=== PATIENT | female | born 1990 | race African-American/Black ===

== ENCOUNTER 2016-12-16 13:04 | Emergency (ER) | payer OTHER ==
[~2016-12-16] VITALS: Ht 160 cm; Wt 133.8 kg
[~2016-12-16 13:04] MED LIST: AUGMENTIN875 MG PO; MOTRIN800 MG PO; PERCOCET 5-3251 EACH PO
[2016-12-16 14:24] LABS: ADD MIUA? YES; BILIRUBIN NEGATIVE; BLOOD MODERATE; COLOR YELLOW ((YELLOW)); GLUCOSE (STRIP) NEGATIVE; KETONES NEGATIVE; LEUKOCYTES TRACE; NITRITE NEGATIVE; PROTEIN (STRIP) 100; SPECIFIC GRAVITY 1.024 (1.000-1.030); UROBILINOGEN 0.2 MG/DL (0.2-1.0)
[2016-12-16 14:27] LABS: HEMATOCRIT 37.6 % (36.0-46.0); MCH 26.5 PG (29.0-34.0); MCV 80.3 FL (83-99); MEAN PLAT.VOLUME 9.3 uM^3 (9.5-12.4); PLATELET COUNT 433 K/uL (156-360); RBC DIS.WIDTH-CV 14.7 % (11.8-14.6); RBC DIS.WIDTH-SD 42.3 % (39-53); RED BLOOD COUNT 4.68 M/uL (3.80-5.20); WHITE BLOOD COUNT 13.7 K/uL (4.1-10.2)
[2016-12-16 14:40] LABS: CHLORIDE 106 mEq/L (99-109); POTASSIUM 3.6 mEq/L (3.7-5.4); SODIUM 144 mEq/L (136-147)
[2016-12-16 14:42] LABS: GLUCOSE 92 mg/dL (70-99)
[2016-12-16 14:43] LABS: ANION GAP 11 MEQ/L (2-14)
[2016-12-16 14:44] LABS: TOTAL BILIRUBIN 0.3 mg/dL (0.0-1.0)
[2016-12-16 14:46] LABS: ALKALINE PHOSPHATASE 131 IU/L (3-129); GFR ESTIMATE (CALCULATED) > 59 mL/min/
[2016-12-16 14:47] LABS: UREA NITROGEN (BUN) 6 mg/dL (9-23)
[2016-12-16 14:52] LABS: BACTERIA 1+ /HPF; EPITHELIAL CELLS 1+ /HPF; MUCUS 1+ /LPF; RED BLOOD CELLS 30-40 /HPF (0-5); UCUL ADDED? NO; WHITE BLOOD CELLS 0-5 /HPF (0-5)
[2016-12-16 14:57] LABS: QUANTITATIVE HCG < 4.0 MIU/ML
[2016-12-16] MEDS ORDERED: NAPROXEN500 MG PO (16:54)
[2016-12-16 17:07] VITALS: BP 107/81
== END 2016-12-16 17:08 | disposition home or self-care (01) ==
LOC: EME 13:04
DX: K43.9 Ventral hernia without obstruction or gangrene (principal); F11.10 Opioid abuse, uncomplicated
CPT/HCPCS: 74177; 80053; 81003; 84702; 85027; 99281; 99284; J1885; J3010; J7120

== ENCOUNTER 2017-04-02 11:33 | Emergency (ER) | payer OTHER ==
[~2017-04-02] VITALS: Ht 160 cm; Wt 131.6 kg
[~2017-04-02 11:33] MED LIST changes: +NAPROXEN500 MG PO
[2017-04-02 16:05] VITALS: BP 145/94
== END 2017-04-02 16:31 | disposition home or self-care (01) ==
LOC: EME 11:33
DX: O26.891 Other specified pregnancy related conditions, first trimester (principal); K59.01 Slow transit constipation; O99.322 Drug use complicating pregnancy, second trimester; F11.90 Opioid use, unspecified, uncomplicated; K58.9 Irritable bowel syndrome, unspecified; Z3A.15 15 weeks gestation of pregnancy; Z88.6 Allergy status to analgesic agent; Z87.891 Personal history of nicotine dependence
CPT/HCPCS: 99281; 99284

== ENCOUNTER → 2017-07-03 | Outpatient (CLI) | payer OTHER ==
[~2017-07-03] VITALS: Ht 160 cm; Wt 130.5 kg
[~2017-07-03] MED LIST changes: +PRENATAL TABLE1 EAC3 PO
== END | disposition home or self-care (01) ==
LOC: IVINF 06-28 15:00
DX: Z31.82 Encounter for Rh incompatibility status (principal); Z3A.28 28 weeks gestation of pregnancy; Z67.11 Type A blood, Rh negative
CPT/HCPCS: J2790

== ENCOUNTER 2017-09-13 10:38 | Inpatient (IN) | payer OTHER ==
[~2017-09-13] VITALS: Ht 160 cm; Wt 132.9 kg
[~2017-09-13 10:38] MED LIST changes: +ROXICODONE5 MG PO; +TUMS500 MG PO; +TYLENOL EXTRA500 MG PO
[2017-09-13 11:11] VITALS: BP 117/72
[2017-09-13 12:44] VITALS: BP 110/59
[2017-09-13 14:44] VITALS: BP 115/65
[2017-09-13] MEDS ORDERED: ENDOCET 5-3251 EACH PO (16:54)
[2017-09-13] MEDS ORDERED: IBUPROFEN800 MG PO (16:54)
[2017-09-13 18:21] VITALS: BP 122/58
[2017-09-13 19:14] VITALS: BP 114/61
[2017-09-13 22:35] VITALS: BP 112/58
[2017-09-14 00:22] VITALS: BP 120/58
[2017-09-14 03:43] VITALS: BP 115/52
[2017-09-14 07:09] LABS: EOSINOPHIL (%) 0.8 % (0-5); EOSINOPHIL COUNT 0.1 K/uL (0-0.3); HEMATOCRIT 28.4 % (36.0-46.0); IMMATURE GRANULOCYTE (%) 0.7 % (0.0-0.7); IMMATURE GRANULOCYTE COUNT 0.1 K/uL; INSTRUMENT ABS NEUTROPHIL CT 9.1 K/uL; LYMPHOCYTE COUNT 2.4 K/uL (1.0-2.8); MCH 24.7 PG (29.0-34.0); MCHC 31.7 G/DL (30.0-36.0); MEAN PLAT.VOLUME 9.8 uM^3 (9.5-12.4); MONOCYTE (%) 6.3 % (3-12); MONOCYTE COUNT 0.8 K/uL (0-0.8); NEUTROPHIL (%) 73.1 % (45-76); NEUTROPHIL COUNT 9.1 K/uL (1.8-6.4); PLATELET COUNT 314 K/uL (156-360); RBC DIS.WIDTH-CV 15.2 % (11.8-14.6); RBC DIS.WIDTH-SD 42.7 % (39-53); RED BLOOD COUNT 3.64 M/uL (3.80-5.20); WHITE BLOOD COUNT 12.5 K/uL (4.1-10.2)
[2017-09-14 08:01] VITALS: BP 105/55
[2017-09-14 15:43] VITALS: BP 107/58
[2017-09-14 19:36] VITALS: BP 123/58
[2017-09-15 03:00] VITALS: BP 126/68
[2017-09-15 07:47] VITALS: BP 137/69
[2017-09-15 10:52] VITALS: BP 113/60
[2017-09-15 15:15] VITALS: BP 128/74
[2017-09-15 22:25] VITALS: BP 122/63
[2017-09-16 07:13] VITALS: BP 123/75
[2017-09-16 15:52] VITALS: BP 116/58
[2017-09-17 07:18] VITALS: BP 121/74
[2017-09-17 14:50] VITALS: BP 121/63
== END 2017-09-17 18:35 | disposition home or self-care (01) | DRG 765 ==
LOC: 2SOUTH → 2WEST 10:44 → 2SOUTH 11:14 → 2WEST 09-17 18:35
PROVIDERS: Obstetrics & Gynecology Gynecology
PROC: 10D00Z1 Extraction of Products of Conception, Low, Open Approach (ICD-10-PCS; principal; 2017-09-13)
DX: O34.211 Maternal care for low transverse scar from previous cesarean delivery (principal); O75.89 Other specified complications of labor and delivery; G89.29 Other chronic pain; R10.2 Pelvic and perineal pain; O99.214 Obesity complicating childbirth; E66.01 Morbid (severe) obesity due to excess calories; Z68.43 Body mass index [BMI] 50.0-59.9, adult; O26.893 Other specified pregnancy related conditions, third trimester; Z67.11 Type A blood, Rh negative; Z3A.39 39 weeks gestation of pregnancy; Z37.0 Single live birth
CPT/HCPCS: 36415; 83030; 85025; 86850; 86900; 86901; J0690; J1100; J1170; J1200; J1650; J1885; J2274; J2405; J2765; J2790; J3010; J7120

== ENCOUNTER 2017-09-27 06:24 | Emergency (ER) | payer OTHER ==
[~2017-09-27] VITALS: Ht 160 cm; Wt 127.8 kg
[~2017-09-27 06:24] MED LIST changes: +ENDOCET 5-3251 EACH PO; +IBUPROFEN800 MG PO
[2017-09-27 07:29] LABS: EOSINOPHIL (%) 2.4 % (0-5); EOSINOPHIL COUNT 0.3 K/uL (0-0.3); HEMATOCRIT 32.1 % (36.0-46.0); IMMATURE GRANULOCYTE (%) 0.4 % (0.0-0.7); IMMATURE GRANULOCYTE COUNT 0.1 K/uL; INSTRUMENT ABS NEUTROPHIL CT 10.6 K/uL; LYMPHOCYTE COUNT 0.8 K/uL (1.0-2.8); MCH 24.7 PG (29.0-34.0); MCHC 31.8 G/DL (30.0-36.0); MCV 77.7 FL (83-99); MEAN PLAT.VOLUME 9.1 uM^3 (9.5-12.4); MONOCYTE COUNT 0.2 K/uL (0-0.8); NEUTROPHIL (%) 88.7 % (45-76); NEUTROPHIL COUNT 10.6 K/uL (1.8-6.4); PLATELET COUNT 391 K/uL (156-360); RBC DIS.WIDTH-CV 15.2 % (11.8-14.6); RBC DIS.WIDTH-SD 42.3 % (39-53); RED BLOOD COUNT 4.13 M/uL (3.80-5.20); WHITE BLOOD COUNT 11.9 K/uL (4.1-10.2)
[2017-09-27 07:35] LABS: ADD MIUA? YES; BILIRUBIN NEGATIVE; BLOOD LARGE; COLOR YELLOW ((YELLOW)); GLUCOSE (STRIP) NEGATIVE; KETONES NEGATIVE; LEUKOCYTES MODERATE; NITRITE NEGATIVE; PROTEIN (STRIP) 100; SPECIFIC GRAVITY 1.024 (1.000-1.030); UROBILINOGEN 0.2 MG/DL (0.2-1.0)
[2017-09-27 08:16] LABS: ALKALINE PHOSPHATASE 119 IU/L (3-129); ANION GAP 8 MEQ/L (2-14); CHLORIDE 106 MEQ/L (99-109); GFR ESTIMATE (CALCULATED) > 59 mL/min/; GLUCOSE 82 mg/dL (70-99); POTASSIUM 3.7 MEQ/L (3.7-5.4); SAMPLE HEMOLYSIS CHECK 0; SAMPLE ICTERIC CHECK 0; SAMPLE LIPEMIA CHECK 0; SODIUM 138 MEQ/L (136-147); TOTAL BILIRUBIN 0.7 MG/DL (0.0-1.0); UREA NITROGEN (BUN) 7 mg/dL (9-23)
[2017-09-27 08:27] LABS: RED BLOOD CELLS 30-40 /HPF (0-5)
[2017-09-27 08:28] LABS: EPITHELIAL CELLS 2+ /HPF; MUCUS NONE SEEN /LPF; WHITE BLOOD CELLS 15-20 /HPF (0-5)
[2017-09-27 08:29] LABS: BACTERIA 2+ /HPF; UCUL ADDED? YES
[2017-09-27] MEDS ORDERED: KEFLEX500 MG PO (10:00)
[2017-09-27 12:08] VITALS: BP 126/87
== END 2017-09-27 11:54 | disposition home or self-care (01) ==
LOC: EME 06:24
PROVIDERS: Emergency Medicine
DX: L50.9 Urticaria, unspecified (principal); R50.9 Fever, unspecified; R05 Cough; R51 Headache; Z98.890 Other specified postprocedural states; Z88.5 Allergy status to narcotic agent
CPT/HCPCS: 71020; 80053; 81003; 83605; 85025; 87040; 87086; 99281; 99285; J0696; J0780; J1200; J1885; J7030

== ENCOUNTER 2017-11-22 05:43 | Emergency (ER) | payer OTHER ==
[~2017-11-22] VITALS: Ht 160 cm; Wt 129.1 kg
[~2017-11-22 05:43] MED LIST changes: +KEFLEX500 MG PO
[2017-11-22 06:13] LABS: APPEARANCE CLEAR ((CLEAR)); BILIRUBIN NEGATIVE; BLOOD NEGATIVE; COLOR YELLOW ((YELLOW)); GLUCOSE (STRIP) NEGATIVE; KETONES NEGATIVE; LEUKOCYTES NEGATIVE; NITRITE NEGATIVE; PROTEIN (STRIP) NEGATIVE; SPECIFIC GRAVITY 1.031 (1.000-1.030); UCUL ADDED? NO; UROBILINOGEN 0.2 MG/DL (0.2-1.0)
[2017-11-22 06:42] LABS: HEMATOCRIT 33.3 % (36.0-46.0); HEMOGLOBIN 10.4 G/DL (11.9-15.5); MCH 24.5 PG (29.0-34.0); MCHC 31.2 G/DL (30.0-36.0); MCV 78.4 FL (83-99); PLATELET COUNT 328 K/uL (156-360); RBC DIS.WIDTH-CV 17.1 % (11.8-14.6); RBC DIS.WIDTH-SD 48.7 % (39-53); RED BLOOD COUNT 4.25 M/uL (3.80-5.20); WHITE BLOOD COUNT 7.7 K/uL (4.1-10.2)
[2017-11-22 06:49] LABS: ALBUMIN 3.8 g/dL (3.2-4.8)
[2017-11-22 06:50] LABS: CHLORIDE 106 mEq/L (99-109); POTASSIUM 3.6 mEq/L (3.7-5.4); SODIUM 138 mEq/L (136-147)
[2017-11-22 06:52] LABS: GLUCOSE 102 mg/dL (70-99); TOTAL PROTEIN 6.8 g/dL (6.4-8.3)
[2017-11-22 06:54] LABS: TOTAL BILIRUBIN 0.2 mg/dL (0.0-1.0)
[2017-11-22 06:55] LABS: ALKALINE PHOSPHATASE 138 IU/L (3-129)
[2017-11-22 06:56] LABS: CREATININE 0.7 mg/dL (0.6-1.3); GFR ESTIMATE (CALCULATED) > 59 mL/min/
[2017-11-22 06:57] LABS: AST (GOT) 102 IU/L (2-34); UREA NITROGEN (BUN) 11 mg/dL (9-23)
[2017-11-22 06:59] LABS: ALT (GPT) 75 IU/L (3-49); LIPASE 18 U/L (1.0-51.0)
[2017-11-22 07:06] LABS: QUANTITATIVE HCG < 4.0 MIU/ML
[2017-11-22 09:49] VITALS: BP 121/73
== END 2017-11-22 10:42 | disposition home or self-care (01) ==
LOC: EME 05:43
DX: R10.11 Right upper quadrant pain (principal); E66.9 Obesity, unspecified; Z68.43 Body mass index [BMI] 50.0-59.9, adult; Z90.49 Acquired absence of other specified parts of digestive tract; Z88.5 Allergy status to narcotic agent
CPT/HCPCS: 74177; 80053; 81003; 83690; 84702; 85027; 99281; 99284; J1200; J2270; J2405; J3010; J7030

== ENCOUNTER 2017-12-29 00:52 | Emergency (ER) | payer OTHER ==
[~2017-12-29] VITALS: Ht 160 cm; Wt 130.2 kg
[2017-12-29 01:24] LABS: APPEARANCE CLEAR ((CLEAR)); BILIRUBIN NEGATIVE; BLOOD NEGATIVE; COLOR AMBER ((YELLOW)); GLUCOSE (STRIP) NEGATIVE; KETONES NEGATIVE; LEUKOCYTES NEGATIVE; NITRITE POSITIVE; PROTEIN (STRIP) 30; SPECIFIC GRAVITY 1.027 (1.000-1.030)
[2017-12-29 01:40] LABS: EPITHELIAL CELLS 2+ /HPF; RED BLOOD CELLS 0-5 /HPF (0-5); WHITE BLOOD CELLS 0-5 /HPF (0-5)
[2017-12-29 01:41] LABS: BACTERIA 1+ /HPF; MUCUS NONE SEEN /LPF; UCUL ADDED? NO
[2017-12-29] MEDS ORDERED: MACROBID100 MG PO (02:18)
[2017-12-29] MEDS ORDERED: PYRIDIUM100 MG PO (02:18)
[2017-12-29] MEDS ORDERED: ZOFRAN ODT4 MG PO (02:18)
[2017-12-29 02:30] VITALS: BP 101/71
== END 2017-12-29 02:40 | disposition home or self-care (01) ==
LOC: EME 00:52
DX: N39.0 Urinary tract infection, site not specified (principal); K21.9 Gastro-esophageal reflux disease without esophagitis; F41.9 Anxiety disorder, unspecified; F17.200 Nicotine dependence, unspecified, uncomplicated; Z87.440 Personal history of urinary (tract) infections; Z90.49 Acquired absence of other specified parts of digestive tract; Z88.5 Allergy status to narcotic agent
CPT/HCPCS: 81003; 81025; 99281; 99284